=== PATIENT | female | born 1950 | race Caucasian/White ===

== ENCOUNTER 2020-07-27 02:43 | Outpatient (CLI) | payer MEDICARE, OTHER | END 2020-07-27 02:44 | disposition critical access hospital (66) | LOC: EMS 02:43 | PROVIDERS: ATTEND Emergency Medicine | DX: R07.9 Chest pain, unspecified (principal); R11.0 Nausea | CPT/HCPCS: A0425; A0429 ==

== ENCOUNTER 2020-07-27 02:54 | Emergency (ER) | payer MEDICARE, OTHER ==
--- NOTE | 2020-07-27 02:54 | ED Physician Documentation ---
PD HPI CHEST PAIN - Stated complaint Stated Complaint: CP - History obtained from History obtained from: Patient, EMS - History of Present Illness Timing - onset: Enter time (01:30) Timing - onset during: Rest (in bed but awake) Timing - details: Abrupt onset Pain level max: 8 Pain level now: 3 Quality: Pressure, Pain Location: Substernal Radiation: Neck Improved by: Nothing Worsened by: Other (antacid) Associated symptoms: Shortness of air (mild) Similar symptoms before: Has not had sx before Recently seen: Not recently seen - Additional information Additional information: at 1:30 AM while awake in bed, patient had sudden onset high midline chest pressure with mild dyspnea and mild radiation to base of neck. it was 8/10 intensity. she took TUMS which she felt made the pain worse so she called 911. she denies having had these symptoms before. she took 325mg ASA. by the time EMS arrived, the pain had decreased to 4/10 and now 3/10 on my HPI. 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 she recalls having a stress test which she says she passed, she believes it was approximately 10 years ago Review of Systems Constitutional: reports: Reviewed and negative Cardiac: reports: Chest pain / pressure. 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 - Past Surgical History Past Surgical History: Yes General: Other (breast lumpectomy) - Allergies Allergies/Adverse Reactions: Allergies Allergy/AdvReac Type Severity Reaction Status Date / Time acetaminophen [From Tylenol] Allergy Hives Verified 07/27/20 03:01 metoclopramide [From Reglan] Allergy Hives Verified 07/27/20 03:05 - Social History Does the pt smoke?: No PD ED PE NORMAL - Vitals Vital signs reviewed: Yes - General General: Alert and oriented X 3, No acute distress, Well developed/nourished - HEENT HEENT: Moist mucous membranes - Neck Neck: Supple, no meningeal sign - Cardiac Cardiac: RRR, No murmur, No gallop, No rub - Respiratory Respiratory: No respiratory distress, Clear bilaterally - Abdomen Abdomen: Normal bowel sounds, Soft, Non tender - Derm Derm: Normal color, Warm and dry - Extremities Extremities: No edema Results - Vitals Vitals: Oxygen O2 Source Room air - EKG (time done) No standard instances Rate: Rate (enter#) (60) Rhythm: NSR [place]: Normal Intervals: Normal CA QRS: Normal Ischemia: Normal ST segments Other comments: Other comments (PAC) - Labs Labs: Laboratory Tests 07/27/20 07/27/20 07/27/20 03:25 03:25 03:25 WBC 5.7 RBC 3.93 L Hgb 12.1 Hct 36.4 L MCV 92.6 MCH 30.8 MCHC 33.2 RDW 12.2 Plt Count 217 MPV 10.6 Neut # (Auto) 3.0 Lymph # (Auto) 2.0 [place] # (Auto) 0.5 Eos # (Auto) 0.2 Baso # (Auto) 0.0 Absolute Nucleated RBC 0.00 Nucleated RBC % 0.0 Sodium 134 L Potassium 3.8 Chloride 94 L Carbon Dioxide 25 Anion Gap 15.0 H BUN 19 Creatinine 0.8 Estimated GFR (MDRD) 71 L Glucose 102 H Calcium 10.2 Total Bilirubin 0.6 AST 19 ALT 23 Alkaline Phosphatase 48 Troponin I High Sens 3.5 Total Protein 6.5 L Albumin 4.1 Globulin 2.4 Albumin/Globulin Ratio 1.7 Lipase 37 - Rads (name of study) chest xray Radiology: Prelim report reviewed, See rad report PD MEDICAL DECISION MAKING - ED course Complexity details: reviewed results, re-evaluated patient, considered differential, d/w patient ED course: patients HEART score is 3 (age, moderate suspicious story), which is appropriate for d/c home. I advised her to contact her PMD to discuss possible further testing such as stress test. I encouraged her to return to ED if worse in any way Departure - Departure Disposition: Home, Self Care Clinical Impression: Chest pain Condition: Good Instructions: ED Chest Pain Atypical Unkn Cause Comments: Follow up with your primary care provider; further tests might be necessary such as a stress test. Discharge Date/Time: 07/27/20 05:23
[2020-07-27 03:30] LABS: BASOPHILS % (AUTO) 0.5 %; EOSINOPHILS # (AUTO) 0.2 10^3/uL (0.0-0.7); EOSINOPHILS % (AUTO) 3.3 %; HCT - HEMATOCRIT 36.4 % (37.0-47.0); HGB - HEMOGLOBIN 12.1 g/dL (12.0-16.0); LYMPHOCYTES % (AUTO) 34.6 %; MEAN CORPUSCULAR HEMOGLOBIN 30.8 pg (27.0-31.0); MEAN CORPUSCULAR HGB CONC 33.2 g/dL (32.0-36.0); MEAN CORPUSCULAR VOLUME 92.6 fL (81.0-99.0); MEAN PLATELET VOLUME 10.6 fL (7.9-10.8); MONOCYTES # (AUTO) 0.5 10^3/uL (0.0-1.0); MONOCYTES % (AUTO) 9.1 %; NEUTROPHILS % (AUTO) 52.3 %; PLT - PLATELET COUNT 217 10^3/uL (130-450); RED BLOOD COUNT 3.93 10^6/uL (4.20-5.40); RED CELL DISTRIBUTION WIDTH 12.2 % (12.0-15.0); WHITE BLOOD COUNT 5.7 x10^3/uL (4.8-10.8)
[2020-07-27 03:46] LABS: ALBUMIN 4.1 g/dL (3.2-5.5); ALBUMIN/GLOBULIN RATIO 1.7 (1.0-2.2); BILIRUBIN,TOTAL 0.6 mg/dL (0.2-1.0); CALCIUM 10.2 mg/dL (8.5-10.3); CREATININE 0.8 mg/dL (0.4-1.0); POTASSIUM 3.8 mmol/L (3.5-5.0); TOTAL PROTEIN 6.5 g/dL (6.7-8.2)
[2020-07-27 05:02] VITALS: BP 126/60
--- NOTE | 2020-07-27 09:11 | XRAY Report ---
PROCEDURE: Chest 2 View X-Ray INDICATIONS: chest pain TECHNIQUE: 2 view(s) of the chest. COMPARISON: None. FINDINGS: Surgical changes and devices: None. Lungs and pleura: No pleural effusions or pneumothorax. Lungs are clear. Mediastinum: Mediastinal contours are normal. Heart size is mildly enlarged. Bones and chest wall: No suspicious bony abnormalities. Soft tissues appear unremarkable. IMPRESSION: No acute pulmonary process. The above findings are concordant with preliminary report. Reviewed by: Marisol Hammond MD on 07/27/2020 9:10 AM PST Approved by: Marisol Hammond MD on 07/27/2020 9:10 AM [facility] Station ID: [id number]
== END 2020-07-27 05:23 | disposition home or self-care (01) ==
LOC: EDUNIT# → ED 02:54
DX: R07.9 Chest pain, unspecified (principal)
CPT/HCPCS: 36415; 80053; 83690; 84484; 85025; 93005; 99284

== ENCOUNTER 2023-04-26 15:55 | Emergency (ER) | payer MEDICARE, OTHER ==
--- NOTE | 2023-04-26 17:22 | ED Physician Documentation ---
PD HPI HEAD INJURY - Stated complaint Stated Complaint: FALL/HIT HEAD - Chief complaint Chief Complaint: Trauma Hd/Nk - History obtained from History obtained from: Patient - Additional information Additional information: 72-year-old woman who is relatively healthy had a fall against a picnic table hitting her occiput on it about 2 hours ago. She has mild but progressive headache. No other injuries. No nausea. No loss of consciousness. 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 - Past Surgical History Past Surgical History: Yes General: Other - Allergies Allergies/Adverse Reactions: Allergies Allergy/AdvReac Type Severity Reaction Status Date / Time acetaminophen [From Tylenol] Allergy Hives Verified 07/27/20 03:01 metoclopramide [From Reglan] Allergy Hives Verified 07/27/20 03:05 - Social History Does the pt smoke?: No Smoking Status: Never smoker Does the pt drink ETOH?: Yes Does the pt have substance abuse?: No - Immunizations Immunizations are current?: Yes - POLST Patient has POLST: No PD ED PE NORMAL - Vitals Vital signs reviewed: Yes - General General: Alert and oriented X 3, No acute distress - HEENT HEENT: PERRL, EOMI, Other (Small hematoma left occiput) - Neck Neck: Supple, no meningeal sign, No bony TTP - Neuro Neuro: Alert and oriented X 3 Eye Opening: Spontaneous Motor: Obeys Commands Verbal: Oriented GCS Score: 15 Results - Vitals Vitals: Vital Signs - 24 hr 04/26/23 16:07 Temperature 36.3 C L Heart Rate 92 Respiratory 18 Rate Blood Pressure 177/73 H O2 Saturation 98 Oxygen O2 Source Room air - Rads (name of study) CT of the head is unremarkable Relevant Findings:: Final report received, EMP independent interpretation of test PD Medical Decision Making - ED course ED course: 72-year-old woman presents with minor head injury. She requested CT and this is not unreasonable. CT was negative. She declined further needs. Departure - Departure Disposition: 01 Home, Self Care Clinical Impression: Head injury Qualifiers: Encounter type: initial encounter Qualified Code(s): S09.90XA - Unspecified injury of head, initial encounter Condition: Good Record reviewed to determine appropriate education?: Yes Instructions: ED Head Injury Closed Forms: PCP List
--- NOTE | 2023-04-26 18:11 | CT Report ---
PROCEDURE: HEAD WO INDICATIONS: head inj TECHNIQUE: Noncontrast 4.5 mm thick angled axial sections acquired from the foramen magnum to the vertex. For r adiation dose reduction, the following was used: automated exposure control, adjustment of mA and/or kV according to patient size. COMPARISON: None. FINDINGS: Image quality: Excellent. CSF spaces: Basal cisterns are patent. No extra-axial fluid collections. Ventricles are normal in size and shape. Brain: No midline shift. No intracranial masses or hemorrhage. Rolon-white matter interface is norm al. Skull and face: Calvarium and visualized facial bones are intact, without suspicious lesions. Sinuses: Visualized sinuses and mastoids are clear. IMPRESSION: No acute intracranial pathology. Reviewed by: Johnathon Dunlap MD on 04/26/2023 6:10 PM PST Approved by: Johnathon Dunlap MD on 04/26/2023 6:10 PM PST Station ID: [id number]
[2023-04-26 18:26] VITALS: BP 140/70; O2SAT 100
== END 2023-04-26 18:25 | disposition home or self-care (01) ==
LOC: ED 15:55
DX: S09.90XA Unspecified injury of head, initial encounter (principal); S00.83XA Contusion of other part of head, initial encounter; W18.30XA Fall on same level, unspecified, initial encounter; W22.03XA Walked into furniture, initial encounter
CPT/HCPCS: 99283; 99284